=== PATIENT | male | born 1970 | race Caucasian/White ===

== ENCOUNTER 2023-06-09 09:57 | Outpatient (CLI) | payer OTHER, SELFPAY ==
[2023-06-09 13:48] LABS: Kit Draw Collected
== END 2023-06-09 09:58 | disposition home or self-care (01) ==
LOC: ANHGOSHLAB 09:59
PROVIDERS: PCP Family Medicine; Visit Provider Family Medicine
DX: M10.9 Gout, unspecified (principal); R03.0 Elevated blood-pressure reading, without diagnosis of hypertension; E66.9 Obesity, unspecified; Z12.5 Encounter for screening for malignant neoplasm of prostate; Z79.899 Other long term (current) drug therapy
CPT/HCPCS: 36415

== ENCOUNTER 2024-07-28 14:23 | Outpatient (CLI) | payer OTHER, SELFPAY ==
[2024-07-28 19:47] LABS: Hematocrit 36.5 % (42.0-52.0); Hemoglobin 13.1 g/dL (14.0-18.0); Mean Corpuscular HGB Conc 35.9 g/dl (32-36); Mean Corpuscular Hemoglobin 31.4 pg (26-34); Mean Corpuscular Volume 87.5 fl (80-100); Mean Platelet Volume 11.1 fl (7.4-10.4); Platelet Count Result 120 k/mm3 (150-375); Red Blood Count 4.17 M/mm3 (4.6-6.20); Red Cell Distribution Width 12.9 % (11.5-14.5); White Blood Count 5.3 K/mm3 (4.5-10.0)
[2024-07-28 21:28] LABS: Alanine Aminotransferase 31 U/L (6-50); Albumin Level 4.6 g/dL (3.5-5.1); Alkaline Phosphatase 51 U/L (38-126); Anion Gap 12 mmol/L (4-12); Aspartate Amino Transferase 35 U/L (17-59); Bilirubin,Total 0.9 mg/dL (0.2-1.3); Blood Urea Nitrogen 16 mg/dL (9-20); Calcium 9.5 mg/dL (8.4-10.2); Carbon Dioxide 30 mmol/L (22-30); Chloride 95 mmol/L (98-107); Cholesterol 158 mg/dL (0-200); Estimated Glomerular Filt Rate > 60; Glucose 93 mg/dL (65-110); HDL Direct 49 mg/dL; Potassium 3.7 mmol/L (3.4-5.0); Sodium 137 mmol/L (137-145); Triglycerides 153 mg/dL (<150)
[2024-07-28 21:42] LABS: LDL Cholesterol Direct 88 mg/dL
== END 2024-07-28 14:24 | disposition home or self-care (01) ==
LOC: ANHGOSHLAB 14:25
PROVIDERS: PCP Family Medicine; Visit Provider Family Medicine
DX: E66.9 Obesity, unspecified (principal); Z79.899 Other long term (current) drug therapy
CPT/HCPCS: 36415; 80053; 80061; 84443; 85027

== ENCOUNTER 2024-10-26 14:33 | Outpatient (CLI) | payer OTHER, SELFPAY ==
[2024-10-26 19:53] LABS: Hematocrit 38.6 % (42.0-52.0); Hemoglobin 13.7 g/dL (14.0-18.0); Mean Corpuscular HGB Conc 35.5 g/dl (32-36); Mean Corpuscular Hemoglobin 30.8 pg (26-34); Mean Corpuscular Volume 86.7 fl (80-100); Mean Platelet Volume 11.1 fl (7.4-10.4); Platelet Count Result 138 k/mm3 (150-375); Red Blood Count 4.45 M/mm3 (4.6-6.20); Red Cell Distribution Width 12.3 % (11.5-14.5); White Blood Count 6.5 K/mm3 (4.5-10.0)
[2024-10-26 20:05] LABS: Alanine Aminotransferase 25 U/L (6-50); Albumin Level 4.9 g/dL (3.5-5.1); Alkaline Phosphatase 55 U/L (38-126); Anion Gap 8 mmol/L (4-12); Aspartate Amino Transferase 35 U/L (17-59); Blood Urea Nitrogen 20 mg/dL (9-20); Calcium 9.6 mg/dL (8.4-10.2); Carbon Dioxide 30 mmol/L (22-30); Chloride 102 mmol/L (98-107); Cholesterol 191 mg/dL (0-200); Estimated Glomerular Filt Rate > 60; Glucose 99 mg/dL (65-110); HDL Direct 47 mg/dL; Potassium 4.3 mmol/L (3.4-5.0); Sodium 140 mmol/L (137-145); Triglycerides 120 mg/dL (<150)
[2024-10-26 20:16] LABS: LDL Cholesterol Direct 107 mg/dL
[2024-10-26 20:37] LABS: Prostate Specific Antigen 0.9 ng/mL (< OR = 4.0)
== END 2024-10-26 14:34 | disposition home or self-care (01) ==
LOC: ANHGOSHLAB 14:34
PROVIDERS: PCP Family Medicine; Visit Provider Nurse Practitioner
DX: Z00.00 Encounter for general adult medical examination without abnormal findings (principal); Z12.5 Encounter for screening for malignant neoplasm of prostate; R09.89 Other specified symptoms and signs involving the circulatory and respiratory systems
CPT/HCPCS: 36415; 80053; 80061; 84153; 84443; 85027; G0103

== ENCOUNTER 2024-10-27 12:53 | Outpatient (CLI) | payer OTHER, SELFPAY ==
--- NOTE | ~2024-10-27 | US_ITS ---
EXAMINATION: US aorta DATE: 10/27/2024 13:27 INDICATION: Other specified symptoms and signs involving the circulatory system. TECHNIQUE: Grayscale, color Doppler, and pulsed Doppler images of the aorta and common iliac arteries were obtained. COMPARISON: None. FINDINGS: The aorta is normal in caliber. The right common iliac artery is normal in caliber. The left common i liac artery is normal in caliber. IMPRESSION: 1. No abdominal aortic aneurysm. Reviewed, dictated and finalized at location A. RAMS MANAGER
== END 2024-10-27 12:54 | disposition home or self-care (01) ==
PROVIDERS: PCP Family Medicine; Visit Provider Nurse Practitioner
DX: R09.89 Other specified symptoms and signs involving the circulatory and respiratory systems (principal)
CPT/HCPCS: 76775

== ENCOUNTER 2024-11-03 10:53 | Outpatient (CLI) | payer OTHER, SELFPAY ==
--- NOTE | 2024-11-03 10:59 | EST_ITS ---
Patient Info Name: Terry Shirley Age: 54 years : 1970 Gender: Male Ht: 74 in Wt: 230 lbs BSA: 2.35 m2 HR: 69 bpm BP: 144 / 70 mmHg Exam Date: 11/03/2024 11:12 AM Exam Location: Echo Lab Patient Status: Outpatient Admit Date: 11/03/2024 Staff Ordering Physician: Arlyn Parra Attending Provider: Arlyn Parra Exercise Technologist: Gladys Johnston RDCS Exercise Physician: Abraham Peterson DO Exam Type: CA stress test treadmill Study Info A treadmill exercise stress test was performed. Summary 1. 1. Negative Mario exercise stress test for ischemic ST changes by ECG criteria. 2. 2. Reduced functional capacity, achieving 8.9 METs of workload. 3. 3. Baseline hypertension with hypertensive response to exercise. 4. 4. Appropriate HR response to exercise. 5. 5. Appropriate HR recovery at 1 minute post exercise. 6. 6. No imaging with stress testing. 7. 7. Patient informed of the above results. Protocol: Mario Stress ECG Details Stage: REST Duration (min): 1 min : 6 sec Speed (mph): 0.0 Grade (%): 0 HR (bpm): 69 SBP (mmHg): 144 DBP (mmHg): 70 METS: --- Stage: REST Duration (min): 4 min : 19 sec Speed (mph): 0.0 Grade (%): 0 HR (bpm): 67 SBP (mmHg): 144 DBP (mmHg): 70 METS: --- Stage: STAGE 1 Duration (min): 1 min : 0 sec Speed (mph): 1.7 Grade (%): 10 HR (bpm): 95 SBP (mmHg): 144 DBP (mmHg): 70 METS: --- Stage: STAGE 1 Duration (min): 2 min : 0 sec Speed (mph): 1.7 Grade (%): 10 HR (bpm): 103 SBP (mmHg): 144 DBP (mmHg): 70 METS: --- Stage: STAGE 1 Duration (min): 3 min : 0 sec Speed (mph): 1.7 Grade (%): 10 HR (bpm): 105 SBP (mmHg): 194 DBP (mmHg): 90 METS: --- Stage: STAGE 2 Duration (min): 1 min : 0 sec Speed (mph): 2.5 Grade (%): 12 HR (bpm): 119 SBP (mmHg): 194 DBP (mmHg): 90 METS: --- Stage: STAGE 2 Duration (min): 2 min : 0 sec Speed (mph): 2.5 Grade (%): 12 HR (bpm): 132 SBP (mmHg): 218 DBP (mmHg): 82 METS: --- Stage: STAGE 2 Duration (min): 3 min : 0 sec Speed (mph): 2.5 Grade (%): 12 HR (bpm): 135 SBP (mmHg): 218 DBP (mmHg): 82 METS: --- Stage: STAGE 3 Duration (min): 1 min : 0 sec Speed (mph): 3.4 Grade (%): 14 HR (bpm): 150 SBP (mmHg): 215 DBP (mmHg): 94 METS: --- Stage: STAGE 3 Duration (min): 1 min : 0 sec Speed (mph): 3.4 Grade (%): 14 HR (bpm): 150 SBP (mmHg): 215 DBP (mmHg): 94 METS: --- Stage: RECOVERY Duration (min): 0 min : 59 sec Speed (mph): 0.0 Grade (%): 0 HR (bpm): 108 SBP (mmHg): 215 DBP (mmHg): 94 METS: --- Stage: RECOVERY Duration (min): 1 min : 59 sec Speed (mph): 0.0 Grade (%): 0 HR (bpm): 90 SBP (mmHg): 215 DBP (mmHg): 94 METS: --- Stage: RECOVERY Duration (min): 2 min : 59 sec Speed (mph): 0.0 Grade (%): 0 HR (bpm): 81 SBP (mmHg): 167 DBP (mmHg): 64 METS: --- Stage: RECOVERY Duration (min): 3 min : 12 sec Speed (mph): 0.0 Grade (%): 0 HR (bpm): 80 SBP (mmHg): 167 DBP (mmHg): 64 METS: --- Rest HR: 67 bpm Peak HR: 151 bpm Rest Sys BP: 144 mmHg Peak Sys BP: 218 mmHg Max Pred HR: 165 bpm % Max Pred HR: 92 % Target HR: 140 bpm Max RPP: 32,918 bpm*mmHg Ram Score: -1 Termination Reason: Reached target heart rate or workload Cardiac Symptoms: Shortness of breath Max ST Seg Deviation: -1.60 mm Total Time: 7 min : 0 sec Rest Isaacs BP: 70 mmHg Peak Isaacs BP: 82 mmHg Angina Score: None Total METS: 8.9 Resting ECG Sinus rhythm. Stress ECG No ST changes. Arrhythmias None. Report Signatures
== END 2024-11-03 10:54 | disposition home or self-care (01) ==
PROVIDERS: PCP Family Medicine; Visit Provider Nurse Practitioner
DX: R07.9 Chest pain, unspecified (principal); I10 Essential (primary) hypertension
CPT/HCPCS: 93017

== ENCOUNTER 2025-06-17 14:36 | Emergency (ER) | payer OTHER, SELFPAY ==
--- OUTSIDE RECORDS SUMMARY | 2025-06-17 14:39 | XMS_ITS | Clinical Summary ---
Author Organization [facility] Address Formerly [facility] [place] [address] Care Team Providers Care Utility Assembler Name Role Phone Yolette Simon MD Primary Care Provider + Allergies No known active allergies Medications allopurinol (ZYLOPRIM) 300 MG tabletIndication s:Chronic gout involving toe without tophus, unspecified cause, unspecified laterality Take 1 tablet (300 mg total) by mouth daily. 90 tablet 3 03/03/2025 Active Active Problems Problem Noted Date Diagnosed Date Psoriasis 04/28/2025 Prediabetes 04/05/2025 Essential hypertension 03/03/2025 Overview (04/28/2025): Stopped blood pressure medication March 26. Home readings now 130/80s. He has been working hard on diet and lifestyle. Just felt poorly on losartan. Assessment & Plan (04/28/2025 12:03 PM CDT): Now controlled currently without medication. Discontinue losartan. Encouraged him to continue with his lifestyle adjustments so his blood pressure readings do not elevate. He will continue to monitor his home readings. We could consider using JANA or ARB again in the future but he simply did not seem to tolerate losartan well. Assessment & Plan (03/03/2025 9:18 AM CDT): Not controlled. Increase losartan to 75 mg and then up to 100 mg after a week if not yet controlled. He will check readings at home. Await lab results from previous pcp. Chronic gout 03/03/2025 Overview (03/03/2025): Started allopurinol about 10-20 years ago. Typically affected toes. YESENIA (obstructive sleep apnea) 03/03/2025 Overview (04/12/2025): Snores loudly. Sleep study 03/2025 shows moderate YESENIA Assessment & Plan (04/28/2025 12:02 PM CDT): He declines to pursue CPAP machine at this time. He would prefer to use a body wedge to manage symptoms. He recognizes this may affect blood pressure and has other risks for his health. Assessment & Plan (03/03/2025 9:18 AM CDT): Arrange for sleep study to see how this contributes to HTN. Encounters Date Type Department Care Team Description 04/28/2025 10:50 AM CDT Office Visit [address] [place] [address] Yolette Simon MD Follow Up (Here to discuss labs. ) 04/28/2025 Travel 04/22/2025 Scan [facility] Scanned, [facility] 04/13/2025 Scan [facility] Scanned, [facility] 04/13/[address] [place] [address] Yolette Simon MD Information 04/11/[address] [place] [address] Yolette Simon MD Results (We received sleep study results. ) 04/06/2025 Scan [facility] Scanned, [facility] 04/05/2025 9:40 AM CDT Allied Health/Nurse Visit [address] [place] [address] Yolette Simon MD Lab Draw 04/05/2025 Travel 04/01/2025 Scan [facility] Scanned, [facility] Sleep Study (SCAN) from Last 3 Months Immunizations Immunization Administration Dates Next Due Tdap (Generic) 08/17/2020 Family History Medical History Relation Comments No Known Problems Brother 1 No Known Problems Brother 2 Hypertension Father No Known Problems Mother No Known Problems Sister 1 No Known Problems Sister 2 No Known Problems Son 1 No Known Problems Son 2 Relation Status Comments Brother 1 Alive Brother 2 Alive Father Alive Mother Alive Sister 1 Alive Sister 2 Alive Son 1 Alive Son 2 Alive Social History Tobacco Use Types Packs/Day Years Used Date Smoking Tobacco: Never Passive Smoke Exposure: Never Smokeless Tobacco: Never Tobacco Cessation:Counseling Given: No Alcohol Use Standard Drinks/Week Comments Not Currently 0 (1 standard drink = 0.6 oz pur e alcohol) PHQ-2 Answer Date Recorded Patient Health Questionnaire-2 Score 0 03/03/2025 Sex and Gender Information Value Date Recorded Sex Assigned at Not on file Legal Sex Male 9:16 AM CDT Gender Identity Not on file Sexual Orientation Not on file Last Filed Vital Signs Vital Sign Reading Time Taken Comments Blood Pressure 138/70 04/28/2025 10:51 AM CDT Pulse 72 04/28/2025 10:51 AM CDT Temperature 36.6 C (97.8 F) 04/28/2025 10:51 AM CDT Respiratory Rate - - Oxygen Saturation 97% 04/28/2025 10:51 AM CDT Inhaled Oxygen Concentration - - Weight 113.9 kg (251 lb) 04/28/2025 10:51 AM CDT Height 185.4 cm (6' 1) 04/28/2025 10:51 AM CDT Body Mass Index 33.12 04/28/2025 10:51 AM CDT Plan of Treatment Upcoming Encounters Date Type Department Care Team (Late st Contact Info) Description 04/06/2026 8:30 AM CDT Office Visit [facility] Family Medicine - [place] [address] [place] [id number] Yolette Simon MD [address] [place] [address] Health Maintenance Due Date Last Done Comments Hepatitis C 1987 Hepatitis B Vaccines (1 of 3 - 19+ 3-dose series) 1988 Pneumococcal Vaccine: 50+ Years (1 of 1 - PCV) 2019 Zoster Vaccines (1 of 2) 2019 COVID-19 Vaccine (4 - 2023-2 5 season) 2024 11/01/2021, 03/04/2021, 02/11/2021 Colorectal Cancer Screening FIT-DNA (3 Years) 08/16/2025 08/16/2022, 08/16/2022 Annual Physical 03/03/2026 03/03/2025 DTaP, Tdap and Td Vaccines ( 2 - Td or Tdap) 08/17/2030 08/17/2020 PHQ-2 (Physician [place]) Completed 03/03/2025 Meningococcal B Vaccine Aged Out No l onger eligible based on patient's age to complete this topic Meningococcal Vaccine Aged Out No naga daniel eligible based on patient's age to complete this topic RSV Immunizations Under 20 Months Aged Out No longer eligible b ased on patient's age to complete this topic Procedures Procedure Name Priority Date/Time Associated Diagnosis Comments COLLECTION VENOUS BLOOD VENIPUNCTURE Routine 04/05/2025 9:57 AM CDT Essential hypertension Routine general medical examination at a health care facility Special screening for malignant neoplasm of prostate PROSTATE SPECIFIC ANTIGEN,SCREENING Routine 04/05/2025 9:46 AM CDT Special screening for malignant neoplasm of prostate Routine general medical examination at a health care facility LIPID PANEL Routine 04/05/2025 9:46 AM CDT Essential hypertension Routine general medical examination at a health care facility HEMOGLOBIN, GLYCOSYLATED Routine 04/05/2025 9:46 AM CDT Essential hypertension Routine general medical examination at a health care facility COMPREHENSIVE METABOLIC PANEL Routine 04/05/2025 9:46 AM CDT Essential hypertension Routine general medical examination at a health care facility SLEEP STUDY GENERIC (SCAN ORDER) 04/01/2025 COLOGUARD (SCAN ORDER) Routine 08/16/2022 from Last 3 Months or Most Recently Relevant to Health Maintenance Results * HEMOGLOBIN, GLYCOSYLATED (04/05/2025 9:46 AM CDT) HGB A1C 5.1 <5.7 % of total Hgb [place] Comment: For the purpose of screening for the presence of diabetes: <5.7% Consistent with the absence of diabetes 5.7-6.4% Consistent with increased risk for diabetes (prediabetes) > or =6.5% Consistent with diabetes This assay result is consistent with a decreased risk of diabetes. Currently, no consensus exists regarding use of hemoglobin A1c for diagnosis of diabetes in children. According to [place] Diabetes Association (ADA) guidelines, hemoglobin A1c <7.0% represents optimal control in non- diabetic patients. Different metrics may apply to specific patient populations. Standards of Medical Care in Diabetes(ADA). 04/05/2025 9:46 AM CDT 04/06/2025 2:35 AM CDT Narrative Resulting Agency Comment Performing Organization Information: Site ID: [id number] Name: [facility] Address: [address] [place] [id number] Director: Azam Morris us Yolette Simon MD LABORATORY Final Re sult [facility] [address] [facility] - [place] [address] [address], * PROSTATE SPECIFIC ANTIGEN,SCREENING (04/05/2025 9:46 AM CDT) Pathologist [facility] PSA TOTAL 0.69 < OR = 2.50 ng/mL Compound Time [facility] Comment: The total PSA value from this assay system is standardized against the WHO standard. The test result will be approximately 20% lower when compared to the equimolar-standardized total PSA (Usha Sury). Comparison of serial PSA results should be interpreted with this fact in mind. This test was performed using the Siemens chemiluminescent method. Values obtained from different assay methods cannot be used interchangeably. PSA levels, regardless of value, should not be interpreted as absolute evidence of the presence or absence of disease. 04/05/2025 9:46 AM CDT 04/06/2025 2:35 AM CDT Narrative Resulting Agency Comment Performing Organization Information: Site ID: [id number] Name: [facility] Address: [address] [address] Director: Azam Morris MD us Yolette Simon MD LABORATORY Final Re sult [place] [address] [address] [id number], * (ABNORMAL) COMPREHENSIVE METABOLIC PANEL (04/05/2025 9:46 AM CDT) Pathologist [facility] GLUCOSE 101(H) 65 - 99 mg/dL [place] Comment: Fasting reference interval For someone without known diabetes, a glucose value between 100 and 125 mg/dL is consistent with prediabetes and should be confirmed with a follow-up test. BUN 17 7 - 25 mg/dL [place] CREATININE S/P/B 0.64(L) 0.70 - 1.30 mg/dL [place] GFR ESTIMATE 112 > OR = 60 mL/min/1.7 3m2 [place] BUN CREATININE RATIO 27(H) 6 - 22 (calc) [place] SODIUM S/P/B 137 135 - 146 mmol/L [place] POTASSIUM S/P/B 4.2 3.5 - 5.3 mmol/L [place] CHLORIDE S/P/B 103 98 - 110 mmol/L [place] CO2 25 20 - 32 mmol/L [place] CALCIUM S/P/B 9.2 8.6 - 10.3 mg/dL [place] TOTAL PROTEIN S/P/B 7.2 6.1 - 8.1 g/dL [place] ALBUMIN S/P/B 4.6 3.6 - 5.1 g/dL [place] GLOBULIN 2.6 1.9 - 3.7 g/dL (calc) [place] ALBUMIN/GLOBULIN RATIO 1.8 1.0 - 2.5 (calc) [place] BILIRUBIN TOTAL S/P/B 0.6 0.2 - 1.2 mg/dL [place] ALKALINE PHOSPHATASE S/P/B 53 35 - 144 U/L [place] AST 18 10 - 35 U/L [place] ALT 29 9 - 46 U/L [place] 04/05/2025 9:46 AM CDT 04/06/2025 2:35 AM CDT Narrative Resulting Agency Comment Performing Organization Information: Site ID: SL Name: [facility] Address: [facility] [place] [address] Director: Azam Morris us Yolette Simon MD LABORATORY Final Re sult Compound Time [place] [address] [place] [address], * (ABNORMAL) LIPID PANEL (04/05/2025 9:46 AM CDT) CHOLESTEROL 163 <200 mg/dL [place] HDL 42 > OR = 40 mg/dL [place] TRIGLYCERIDES 110 <150 mg/dL [place] LDL (CALCULATED) 100(H) mg/dL (calc) [place] Comment: Reference range: <100 Desirable range <100 mg/dL for primary prevention; <70 mg/dL for patients with CHD or diabetic patients with > or = 2 CHD risk factors. LDL-C is now calculated using the Namita calculation, which is a validated novel method providing better accuracy than the Friedewald equation in the estimation of LDL-C. Fredi JAQUEZ et al. ASTER. 2013;310(19): 9141-1834 (http://education.REPP/faq/UUG374) CHOL/HDL RATIO 3.9 <5.0 (calc) [place] NON HDL CHOLESTEROL 121 <130 mg/dL (calc) [place] Comment: For patients with diabetes plus 1 major ASCVD risk factor, treating to a non-HDL-C goal of <100 mg/dL (LDL-C of <70 mg/dL) is considered a therapeutic option. 04/05/2025 9:46 AM CDT 04/06/2025 2:35 AM CDT Narrative Resulting Agency Comment Performing Organization Information: Site ID: SL Name: [facility] Address: [address] [place] [address] Director: Azam Morris Yolette Simon MD LABORATORY Final Re sult Compound Time [facility] - [place] [address] [place] [address] [place] [address], * SLEEP STUDY GENERIC (SCAN ORDER) (04/01/2025) 04/01/2025 [facility] Scanned SCANNING Final Resu lt * COLOGUARD (08/16/2022) STOOL 08/16/2022 [facility] Scanned SCANNING Final Resu lt Performing Organization Address [facility] Co de Phone Number [facility] from Last 3 Months or Most Recently Relevant to Health Maintenance Insurance [employer] Care Teams Utility Assembler Relationship Specialty Start Date End Date Yolette Simon MD [address] [place] [id number] PCP - General FAMILY PRACTICE 03/03/25
[2025-06-17 14:47] VITALS: BP 169/75; PULSE 80; RESP 18; TEMP 36.1; O2SAT 100
--- NOTE | 2025-06-17 16:06 | ED_ITS ---
HPI - Wound/Laceration General Chief Complaint: Wound/Laceration Stated Complaint: sliced finger Time Seen by Provider: 06/17/25 15:00 Source: patient and RN notes reviewed Mode of arrival: ambulatory Limitations: no limitations History of Present Illness HPI narrative: 54-year-old male presents Express Care complaining of right middle finger injury. Patient using a mandoline approximately 1 hour prior to arrival accidentally lacerated his right middle finger. Patient denies any other injuries. Patient reports tetanus is up today. Patient denies any numbness or tingling or any dysfunction to his right middle finger. Bleeding is controlled with direct pressure. Patient does not take any blood thinners. Patient has a history of hypertension Related Data Allergies Allergy/AdvReac Type Severity Reaction Status Date / Time No Known Allergies Allergy Verified 06/17/25 14:38 Review of Systems Review of Systems: CONSTITUTIONAL: Denies fever, chills, or sweats. EYES: Denies visual changes, redness, or discharge. ENT: Denies rhinorrhea, congestion, sore throat, or otalgia. CARDIOVASCULAR: Denies chest pain, palpitations, or edema. RESPIRATORY: Denies cough or dyspnea. GASTROINTESTINAL: Denies abdominal pain, nausea, vomiting, or diarrhea. GENITOURINARY: Denies dysuria or hematuria. SKIN: Denies rash or itching. Positive for laceration. MUSCULOSKELETAL: Denies back pain, joint pain, or myalgia. NEUROLOGIC: Denies headache, numbness, or weakness. PSYCHIATRIC: Denies anxiety or depression. All other systems reviewed are negative, except as documented in HPI. PMFSH Social History Social History Smoking status: Never smoker Alcohol intake: current Lack of Transportation: No Lack of Food: Never True Current Housing: I Have Housing Concerned About Future Housing: No Difficulty Paying Gas/Electric Bills: No Difficulty Paying for Meds: No Currently Unemployed: No Education: Trade/Vocational Certificate Difficulty w/ Childcare or Family Care: No Comments At the time of my signature, I reviewed and agree with the nursing past medical, surgical, social, and family history. There is no relevant family history pertinent to the patient complaint. Exam Narrative: GENERAL: This is a well-nourished, well-developed adult, in no apparent distress. They are non ill-appearing, nontoxic appearing. HEAD: normocephalic, atraumatic. EYES: Sclera clear/white. Conjunctiva normal. Vision is grossly intact. Extraocular movements intact EARS: External ears normal, Hearing grossly intact. NOSE: External nose normal THROAT: Mucous membranes moist, CARDIOVASCULAR: Regular rate and rhythm without murmurs, gallops, or rubs. RESPIRATORY: normal respiratory SKIN: Right middle finger: No obvious deformity, swelling, no bony tenderness, redness, no bruising. There is a laceration to the palmar surface of the distal phalanx. Laceration occurred and linear measuring approximately 3 cm long. Laceration approximates well. Patient is able to flex and extend his right middle finger against resistance at the DIP, PIP, and MCP joint. Patient feel me touch the tip of his finger. Normal sensation. Capillary refill less than 2 seconds. Nail is intact. Patient stable those fingers. Right radial pulse 2 +and palpable. Neurovascular status intact distal injury. NEURO: awake, alert, and oriented to person, place and time. There were no obvious focal neurologic abnormalities. EXTREMITIES: No joint tenderness, effusion, or edema noted. Course Course Emergency Course: Portions of this record may have been created with voice recognition software Level of Care: Express Care Visit Vital Signs Vital signs: Vital Signs Temperature 97.0 F L 06/17/25 14:47 Pulse Rate 80 06/17/25 14:47 Respiratory Rate 18 06/17/25 14:47 Blood Pressure 169/75 H 06/17/25 14:47 Pulse Oximetry 100 06/17/25 14:47 Oxygen Delivery Room Air 06/17/25 14:47 Temperature 97.0 F L 06/17/25 14:47 Pulse Rate 80 06/17/25 14:47 Respiratory Rate 18 06/17/25 14:47 Blood Pressure 169/75 H 06/17/25 14:47 Pulse Oximetry 100 06/17/25 14:47 Oxygen Delivery Room Air 06/17/25 14:47 Reviewed Procedures Laceration Laceration 1: Date: 06/17/25 Time: 15:20 Site: hand (Right distal middle finger) Side (If applicable): right Size (cm): 3 Description: linear and irregular Depth: simple, single layer Local Anesthetic: lidocaine 1% (Digital block, local infiltration) Amount of anesthesia used (mL): 3 Pre-repair: wound explored and irrigated extensively ====== Skin Level ====== Skin layer closed with: nylon Size (cm): 5-0 Number of sutures: 9 Technique: simple, interrupted ====== Subcutaneous Layer ====== ====== Muscle Layer ====== ====== Tendon Layer ====== Dressing: Bacitracin and nonadherent dressing applied. MDM - Wound/Laceration MDM Narrative Medical decision making narrative: Successful laceration repair right middle finger. She required 9 sutures. Bacitracin applied and non adherent dressing placed over wound. Will prophylactically treat with cephalexin to prevent infection. Patient states his tetanus is up-to-date. Will refer patient to a hand specialist for wound check and for any right middle finger issues. Discussed physical exam findings. Advised supportive measures and signs/symptoms to go to the ER. Pt is appropriate for outpt treatment and f/u. Differential Diagnosis Differential diagnosis: Likely laceration, abrasion and avulsion of skin Critical Care Time Critical Care Time Critical Care Time: No Discharge Plan Discharge Clinical Impression: Finger laceration Qualifiers: Encounter type: initial encounter Finger: middle finger Damage to nail status: without damage Foreign body presence: without foreign body Laterality: right Qualified Code(s): S61.212A - Laceration without foreign body of right middle finger without damage to nail, initial encounter Patient Disposition: Home Condition: Stable Instructions: Antibiotic Form, Finger Laceration (ED) Additional Instructions: Your sutures need to be removed in 10-14 days. ?Wear the dressing that has been applied for the first 24 hours to allow a scab to start forming. ?After this, you may remove and wash as normal with soap and water. ?Do NOT wash with peroxide or alcohol. ?Do NOT apply antibiotic ointment. You may apply small amount of Vaseline to the sutures. To not soak prescribe the wound. Change the dressing daily and apply a non adherent dressing to the area. Keep the wound dry and covered. Please take cephalexin as directed. Take Tylenol ibuprofen as needed for pain, follow-up instructions on the bottle. Follow-up with hand specialist in 3-5 days. Please go to the ER for any signs of infection such as redness, swelling, increased pain, fevers, or drainage. ? Patient Language: Sammarinese Prescriptions: New cephalexin 500 mg capsule 500 mg PO Q6H 7 Days Qty: 28 0RF No Action losartan 25 mg tablet 25 mg PO DAILY Qty: 90 1RF allopurinol 300 mg tablet See Rx Instructions .ROUTE .COMPLEX Qty: 90 1RF Dose Instruction: TAKE 1 TABLET BY MOUTH EVERY DAY Rx Instructions: TAKE 1 TABLET BY MOUTH EVERY DAY Follow-up/Referrals: Jorge Haji MD [Physician] - UNKNOWN,DOCTOR [Primary Care Provider] - Time of Disposition: 15:47
== END 2025-06-17 15:50 | disposition home or self-care (01) ==
DX: S61.212A Laceration without foreign body of right middle finger without damage to nail, initial encounter (principal); W27.4XXA Contact with kitchen utensil, initial encounter; I10 Essential (primary) hypertension
CPT/HCPCS: 12002; 99213; G0463; J2003